=== PATIENT | female | born 1975 | race African-American/Black ===

== ENCOUNTER → 2021-08-10 | Outpatient (CLI) | payer BC ==
--- NOTE | 2021-08-10 09:56 | KCIC ---
EXAM: Bilateral knees, standing view. HISTORY: Pain. COMPARISON: None. FINDINGS: A frontal view of the knees is obtained. There is right greater than left medial compartmen t joint space narrowing and mild tricompartment marginal spurring. There is no fracture, dislocation or subluxation. There is suspected minimal left genu varus. IMPRESSION: Mild medial compartment predominant osteoarthritis of both knees. Electronically signed by: Donna Godfrey MD (08/10/2021 9:53 AM) [id number]
--- NOTE | 2021-08-10 13:03 | KCIC ---
EXAMINATION: Magnetic resonance imaging (MRI) of the lumbar spine without contrast 08/10/2021 8:40 AM HISTORY: Chronic low back pain, degenerative disc disease TECHNIQUE: Multiplanar multi-weighted MRI of the lumbar spine was performed without intravenous contr ast using the standard lumbar spine protocol. Contrast information: None administered. COMPARISON: None available. FINDINGS: There is 3 mm anterolisthesis of L4 on L5. 2 mm anterolisthesis of T11 on T12. Vertebral body heights are maintained. Modic type II endplate degenerative changes are identified at L5-S1 with moderate di sc height loss and disc desiccation. Mild disc height loss at L4-L5 disc desiccation. Conus medullari s terminates at L1. There is mild cord signal alteration identified at T11-T12 secondary to disc sejal iation. At T11-T12, there is a central disc extrusion superimposed on diffuse disc bulge. Moderate fa cet arthropathy. Severe bilateral neuroforaminal stenosis. Severe spinal canal stenosis. Simple appea ring bilateral renal cysts measure up to 2.1 cm in the right kidney and 1.6 cm in interpolar left kid vicenta. L1-L2: The disc is normal in configuration. There is no facet arthropathy. There is no neuroforaminal stenosis. There is no spinal canal stenosis. L2-L3: The disc is normal in configuration. There is no facet arthropathy. There is no neuroforaminal stenosis. There is no spinal canal stenosis. L3-L4: There is mild disc bulge. Moderate facet arthropathy. No significant neuroforaminal or spinal canal stenosis. L4-L5: There is a circumferential disc bulge. Moderate to severe facet arthropathy ligamentum flavum infolding. Mild bilateral neuroforaminal stenosis. Mild spinal canal stenosis. L5-S1: There is a circumferential disc bulge asymmetric to the right. Moderate facet arthropathy, rig ht and left. Moderate right and mild left neuroforaminal stenosis. No significant spinal canal stenos is. IMPRESSION: 1. Central disc extrusion at T11-T12 results in severe spinal canal stenosis and bilateral neuroforam inal stenosis. There is cord compression with cord signal abnormality involving the conus. Considerat ion may be on for myelomalacia versus cord edema. 2. Mild degenerative changes of the lumbar spine as described in detail above. Electronically signed by: Jaleesa Gleason MD (08/10/2021 1:01 PM) [id number]
== END ==
LOC: KCIC MRI 08:22
PROVIDERS: ATTEND Physical Medicine & Rehabilitation
DX: M17.0 Bilateral primary osteoarthritis of knee (principal); M76.892 Other specified enthesopathies of left lower limb, excluding foot; M76.891 Other specified enthesopathies of right lower limb, excluding foot; N28.1 Cyst of kidney, acquired; M47.816 Spondylosis without myelopathy or radiculopathy, lumbar region; M51.37 Other intervertebral disc degeneration, lumbosacral region; M51.27 Other intervertebral disc displacement, lumbosacral region; M48.07 Spinal stenosis, lumbosacral region; M48.8X7 Other specified spondylopathies, lumbosacral region; M43.16 Spondylolisthesis, lumbar region; M43.14 Spondylolisthesis, thoracic region; M48.04 Spinal stenosis, thoracic region; M51.24 Other intervertebral disc displacement, thoracic region
CPT/HCPCS: 72148; 73565